=== PATIENT | female | born 1995 | race Caucasian/White ===

== ENCOUNTER 2020-06-09 12:46 | Inpatient (IN) | payer OTHER, SELFPAY ==
[~2020-06-09] VITALS: Ht 170.2 cm; Wt 99.8 kg
[2020-06-09] MEDS: LACTATED RINGERS 1,000 ML IV SCH ×2 (06:36→22:17)
[2020-06-09] MEDS ORDERED: ONDANSETRON 4 MG/2 ML VIAL IVP PRN (13:55)
[2020-06-09] MEDS ORDERED: OXYTOCIN 20 UNITS in LACTATED RINGERS 1,000 ML IV SCH (13:55)
[2020-06-09] MEDS ORDERED: MORPHINE SULFATE 5 MG/ML VIAL IVP PRN (13:55)
[2020-06-09 14:12] VITALS: BP 118/66
[2020-06-09 14:22] LABS: APPEARANCE,URINE SL CLOUDY (CLEAR); BILIRUBIN,URINE NEGATIVE (NEGATIVE); BLOOD, URINE 2+ (NEGATIVE); COLOR,URINE YELLOW (YELLOW); LEUKOCYTE ESTERASE ,URINE NEGATIVE (NEGATIVE); NITRITE, URINE NEGATIVE (NEGATIVE); UGLUCOSE NEGATIVE (NEGATIVE)
[2020-06-09 14:42] LABS: BASOPHILS # (AUTO) 0.1 K/uL (0.00-0.22); BASOPHILS % (AUTO) 1.2 % (0.0-2.0); EOSINOPHILS % (AUTO) 0.1 % (0.0-4.0); HEMATOCRIT 31.2 % (36-48); HEMOGLOBIN 10.4 g/dL (12.0-16.0); LYMPHOCYTES # (AUTO) 1.2 K/uL (2.5-16.5); LYMPHOCYTES % (AUTO) 15.4 % (20.5-51.1); MEAN CORPUSCULAR HEMOGLOBIN 27 pg (27-31); MEAN CORPUSCULAR HGB CONC 33 g/dL (33-37); MEAN CORPUSCULAR VOLUME 80.3 fL (80-94); MONOCYTES # (AUTO) 0.5 K/uL (0.8-1.0); MONOCYTES % (AUTO) 5.8 % (1.7-9.3); NEUTROPHILS % (AUTO) 77.5 % (42.2-75.2); PLATELET COUNT (AUTO) 156 K/uL (140-450); RED BLOOD CELL COUNT(AUTO) 3.89 MIL/uL (4.20-5.40); RED CELL DISTRIBUTION WIDTH 15.2 % (11.6-13.7); WHITE BLOOD COUNT (AUTO) 7.7 K/uL (4.8-10.8)
[2020-06-09 14:51] LABS: RBC,URINE 0-5 /HPF (0-5)
[2020-06-09 14:54] LABS: ALBUMIN 2.7 g/dL (3.4-5.0); ANION GAP 11.4 (8-16); CARBON DIOXIDE 24.7 mmol/L (21-32); CREATININE 0.5 mg/dL (0.6-1.3); POTASSIUM 4.1 mmol/L (3.5-5.1); TOTAL BILIRUBIN 0.3 mg/dL (0.0-1.0)
[2020-06-09] MEDS ORDERED: MORPHINE SULFATE 10 MG/ML VIAL IVP PRN (15:35)
[2020-06-09] MEDS ORDERED: AMPICILLIN 2,000 MG in NACL 0.9% 100 ML IV ONE (17:05)
[2020-06-09] MEDS ORDERED: AMPICILLIN 2,000 MG VIAL ONE (17:16)
[2020-06-09] MEDS ORDERED: OXYTOCIN 20 UNITS/LR PREMIX 1,000 ML IV ONE (18:37)
[2020-06-09] MEDS ORDERED: AMPICILLIN 1,000 MG in NACL 0.9% 50 ML IV SCH (21:00)
--- NOTE | 2020-06-10 09:25 | NUR ---
PATIENT HAS BEEN SCREENED AND CATEGORIZED LOW NUTRITION RISK. PATIENT WILL BE SEEN WITHIN 7 DAYS OF ADMISSION. 06/16/[address]
[2020-06-10] MEDS ORDERED: LIDOCAINE 1% 500 MG/50 ML VIAL ONE (10:14)
[2020-06-10] MEDS ORDERED: LIDOCAINE MPF 1% 10 MG/ML VIAL INJ SCH (10:15)
[2020-06-10] MEDS ORDERED: LIDOCAINE/EPI 1% 1:100000 20 ML VIAL INJ ONE (10:15)
[2020-06-10] MEDS ORDERED: SODIUM PHOSPHATE 118 ML ENEM RC PRN (10:35)
[2020-06-10] MEDS ORDERED: OXYTOCIN 10 UNITS/ML VIAL IM PRN (10:35)
[2020-06-10] MEDS ORDERED: BENZOCAINE/MENTHOL 20%-0.5% 60 GM CAN TP PRN (10:35)
[2020-06-10] MEDS ORDERED: oxyCODONE/APAP 5/325 MG 1 TAB TAB PO PRN ×2 (10:35)
[2020-06-10] MEDS ORDERED: METHYLERGONOVINE 0.2 MG/ML AMP IM PRN (10:35)
[2020-06-10] MEDS ORDERED: TEMAZEPAM 15 MG CAP PO PRN (10:35)
[2020-06-10] MEDS ORDERED: METHYLERGONOVINE 0.2 MG TAB PO PRN (10:35)
[2020-06-10] MEDS ORDERED: CARBOPROST 250 MCG/ML AMP IM SCH (11:30)
[2020-06-10] MEDS ORDERED: CARBOPROST 250 MCG/ML AMP IM ONE (11:32)
[2020-06-10] MEDS ORDERED: OXYTOCIN 20 UNITS/LR PREMIX 1,000 ML IV ONE (11:52)
[2020-06-10] MEDS ORDERED: DOCUSATE SOD/SENNA 50/8.6 MG 1 TAB PO SCH (21:00)
[2020-06-10] MEDS ORDERED: FLU VACCINE QS2020-21 0.5 ML SYR IMVAC PRN (21:10)
[2020-06-11] MEDS: IBUPROFEN 800 MG TAB PO PRN ×2 (02:22→08:56)
[2020-06-11 06:06] LABS: HEMATOCRIT 24.2 % (36-48); HEMOGLOBIN 7.9 g/dL (12.0-16.0)
[2020-06-11] MEDS ORDERED: FERR325E14 PO (13:55)
[2020-06-11] MEDS ORDERED: IBUP-2213 PO (13:57)
== END 2020-06-11 16:28 | disposition home or self-care (01) | DRG 560 ==
LOC: MFCC 12:46
PROVIDERS: ADMIT Obstetrics & Gynecology; ATTEND Obstetrics & Gynecology
PROC: 10E0XZZ Delivery of Products of Conception, External Approach (ICD-10-PCS; principal; 2020-06-10)
PROC: 0HQ9XZZ Repair Perineum Skin, External Approach (ICD-10-PCS; 2020-06-10)
PROC: 10907ZC Drainage of Amniotic Fluid, Therapeutic from Products of Conception, Via Natural or Artificial Opening (ICD-10-PCS; 2020-06-10)
DX: O98.52 Other viral diseases complicating childbirth (principal); U07.1 COVID-19; O60.23X0 Term delivery with preterm labor, third trimester, not applicable or unspecified; O99.52 Diseases of the respiratory system complicating childbirth; O70.0 First degree perineal laceration during delivery; J98.8 Other specified respiratory disorders; Z3A.38 38 weeks gestation of pregnancy; Z37.0 Single live birth
CPT/HCPCS: 36415; 80053; 81001; 85018; 85025; 86592; 86886; 86900; 86901; 87086; 87653-90; J0290; J2001; J2210; J2590; J3490; J7120